=== PATIENT | male | born 1980 | race Caucasian/White ===

== ENCOUNTER 2016-08-16 19:15 | Emergency (ER) | payer SELFPAY ==
[~2016-08-16] VITALS: Ht 177.8 cm; Wt 159.8 kg
[2016-08-16 19:44] VITALS: BP 132/85; PULSE 102; RESP 20; TEMP 99.1; O2SAT 94
[2016-08-16] MEDS ORDERED: MORPHINE SULFATE 8 MG/ML INJ IV PUSH ONE (20:00)
[2016-08-16] MEDS ORDERED: SODIUM CHLORIDE 0.9% FLUSH 5 ML FLUSH IVF PRN (20:00)
[2016-08-16] MEDS ORDERED: CLON0.1T PO ×2 (20:04→21:54)
[2016-08-16] MEDS ORDERED: GABA800T PO (20:04)
[2016-08-16 20:05] VITALS: RESP 18; O2SAT 94
--- NOTE | 2016-08-16 20:26 | PD ---
HPI Chief Complaint: Abdominal Pain Time Seen by Provider: 19:51 Travel History International Travel<30 days: No Contact w/Intl Traveler<30days: No Traveled to known affect area: No History of Present Illness HPI 36-year-old male arrives to the ER with complaint of abdominal pain times several weeks at least. Location is right upper quadrant with radiation to the back. It is constant. It's worse with changes in position like bending over. He denies drinking alcohol. He's had no nausea vomiting or diarrhea. He said no fever. His appetite has been normal lately. He also complains of pain and numbness in the feet. He suffers with neuropathy. He was prescribed Neurontin by me a couple weeks ago here, 30 days 900 mg 3 times a day, which she states was beneficial however was taking up to 1500 mg at a time. Standing on his feet for more than a few hours at a time tends to cause worsening numbness and pain. He states that the pain is a 7/10. The neuropathy has been present for years. He has no history of diabetes of which he is aware. PFSH Past Medical History Hx Anticoagulant Therapy: Yes Cardiovascular Problems: Yes Diminished Hearing: No Hypertension: Yes Neurologic: Yes Immunizations Current: Yes Tetanus Vaccination: Unknown Influenza Vaccination: No Social History Alcohol Use: Yes Tobacco Use: No Substance Use: No Allergies-Medications (Allergen,Severity, Reaction): Coded Allergies: No Known Allergies (Unverified , 08/16/16) Reported Meds & Prescriptions Reported Meds & Active Scripts Active Clonidine (Clonidine HCl) 0.1 Mg Tab 0.1 Mg PO BID Gabapentin 300 Mg Cap 900 Mg PO TID 30 Days Reported Gabapentin 800 Mg Tab 800 Mg PO TID Review of Systems Except as stated in HPI: all other systems reviewed are Neg Physical Exam Narrative GENERAL: 36 yo M, BMI is 50, pleasant SKIN: Warm and dry. HEAD: Atraumatic. Normocephalic. EYES: Pupils equal and round. No scleral icterus. No injection or drainage. ENT: No nasal bleeding or discharge. Mucous membranes pink and moist. NECK: Trachea midline. No JVD. CARDIOVASCULAR: Regular rate and rhythm. RESPIRATORY: No accessory muscle use. Clear to auscultation. Breath sounds equal bilaterally. GASTROINTESTINAL: Minimal TTP RUQ. Soft. Obese abdomen. MUSCULOSKELETAL: Extremities without clubbing, cyanosis, or edema. No obvious deformities. 2+ DP bilaterally. Hair intact about toes. Brisk cap refill present. No asymmetry of either calf to suggest DVT. Sensation on soles of feet diminished however deep pressure sensation is preserved. NEUROLOGICAL: Awake and alert. No obvious cranial nerve deficits. Motor grossly within normal limits. Five out of 5 muscle strength in the arms and legs. Normal speech. PSYCHIATRIC: Appropriate mood and affect; insight and judgment normal. Data Data Last Documented VS Vital Signs Date Time Temp Pulse Resp B/P Pulse Ox O2 Delivery O2 Flow Rate FiO2 08/16/16 22:18 99 18 104/66 94 08/16/16 21:04 Room Air 08/16/16 19:44 99.1 Orders Complete Blood Count With Diff (08/16/16 20:00) Comprehensive Metabolic Panel (08/16/16 20:00) Lipase (08/16/16 20:00) Iv Access Insert/Monitor (08/16/16 20:00) Ecg Monitoring (08/16/16 20:00) Oximetry (08/16/16 20:00) Sodium Chloride 0.9% Flush (Ns Flush) (08/16/16 20:00) Ct Abd/Pel W Iv Contrast(Rout) (08/16/16 20:00) Morphine Inj (Morphine Inj) (08/16/16 20:00) Iohexol 350 Inj (Omnipaque 350 Inj) (08/16/16 20:54) Potassium Chloride (Kcl) (08/16/16 22:00) Labs Laboratory Tests Test 08/16/16 20:25 White Blood Count 8.2 TH/MM3 Red Blood Count 4.72 MIL/MM3 Hemoglobin 13.8 GM/DL Hematocrit 41.2 % Mean Corpuscular Volume 87.2 FL Mean Corpuscular Hemoglobin 29.2 PG Mean Corpuscular Hemoglobin 33.5 % Concent Red Cell Distribution Width 14.4 % Platelet Count 243 TH/MM3 Mean Platelet Volume 8.2 FL Neutrophils (%) (Auto) 59.5 % Lymphocytes (%) (Auto) 32.4 % Monocytes (%) (Auto) 6.1 % Eosinophils (%) (Auto) 1.5 % Basophils (%) (Auto) 0.5 % Neutrophils # (Auto) 5.0 TH/MM3 Lymphocytes # (Auto) 2.6 TH/MM3 Monocytes # (Auto) 0.5 TH/MM3 Eosinophils # (Auto) 0.1 TH/MM3 Basophils # (Auto) 0.0 TH/MM3 CBC Comment DIFF FINAL Differential Comment Sodium Level 141 MEQ/L Potassium Level 3.3 MEQ/L Chloride Level 103 MEQ/L Carbon Dioxide Level 29.1 MEQ/L Anion Gap 9 MEQ/L Blood Urea Nitrogen 11 MG/DL Creatinine 0.84 MG/DL Estimat Glomerular Filtration 102 ML/MIN Rate Random Glucose 99 MG/DL Calcium Level 8.8 MG/DL Total Bilirubin 0.2 MG/DL Aspartate Amino Transf 16 U/L (AST/SGOT) Alanine Aminotransferase 28 U/L (ALT/SGPT) Alkaline Phosphatase 75 U/L Total Protein 7.3 GM/DL Albumin 3.7 GM/DL Lipase 94 U/L [facility] Medical Decision Making Medical Screen Exam Complete: Yes Emergency Medical Condition: Yes Differential Diagnosis Constipation, Gastritis, Acute Cholecystitis, Biliary Colic, Pancreatitis, CHAPIN , Hepatitis, Bowel Obstruction, Cystitis, Mesenteric Ischemia, AAA, Appendicitis , Renal Stone/Hydronephrosis, GERD, perforated viscous, neuropathy Narrative Course CBC & BMP Diagram 08/16/16 20:25 LFTs normal Lipase normal Last 24 hours Impressions Abdomen/Pelvis CT 08/16/161999 Signed Impressions: Service Date/Time: Tuesday, August 16, 2016 20:35 - CONCLUSION: 1. I do not see an etiology for the patient's right lower quadrant pain. 2. There are mild degenerative changes present in the thoracic spine and both SI joints. Efren Sheets MD FACR The patient is resting comfortably and feels better, is alert and in no distress. The patients results and examination findings were discussed. The repeat examination is unremarkable and benign. The history, exam, diagnostic testing, and current condition do not suggest any significant pathology to warrant further testing, continued ED treatment, admission, or surgical evaluation at this point. The vital signs have been stable. The patient does not have uncontrollable pain, intractable vomiting, or other significant symptoms. The patient's condition is stable and appropriate for discharge. The patient will pursue further outpatient evaluation with a primary care physician or other designated or consulting physician as indicated in the discharge instructions. The patient expressed understanding and was agreeable with this plan. Diagnosis Primary Impression: Abdominal pain Qualified Code: R10.11 - Right upper quadrant abdominal pain Additional Impression: Neuropathy Referrals: Dorothea Rousseau MD 2 days Additional Instructions: You have a choice when it comes to health care, and we are glad that you chose [facility]. Hopefully, we have met your expectations on today's visit. You are welcome to return to [facility] at any time, as we are committed to meeting the health care needs of our community. Med/Other Pt SpecificInfo: Prescription(s) given Scripts Clonidine 0.1 Mg Tab0.1 Mg PO BID #60 TAB Ref 0 Prov:Kenny Teran MD 08/16/16 Gabapentin 300 Mg [id number] Mg PO TID 30 Days Ref 0 Prov:Kenny Teran MD 08/16/16 Disposition: 01 DISCHARGE HOME Condition: Stable Kenny Teran MD Aug 16, 2016 20:26
[2016-08-16 20:39] LABS: BASOPHIL % 0.5 % (0.0-2.0); EOSINOPHIL # 0.1 TH/MM3 (0-0.4); EOSINOPHIL % 1.5 % (0.0-4.0); HEMATOCRIT 41.2 % (39.0-51.0); HEMO FLAGS DIFF FINAL; LYMPH % 32.4 % (9.0-44.0); LYMPHOCYTE # 2.6 TH/MM3 (1.0-4.8); MEAN CELL VOLUME 87.2 FL (80.0-100.0); MEAN CORPUSCULAR HEMOGLOBIN 29.2 PG (27.0-34.0); MEAN CORPUSCULAR HGB CONC 33.5 % (32.0-36.0); MONO % 6.1 % (0.0-8.0); NEUT % 59.5 % (16.0-70.0); PLATELET COUNT 243 TH/MM3 (150-450); RED BLOOD COUNT 4.72 MIL/MM3 (4.50-5.90); RED CELL DISTRIBUTION WIDTH 14.4 % (11.6-17.2); WHITE BLOOD COUNT 8.2 TH/MM3 (4.0-11.0)
[2016-08-16 20:48] LABS: CHLORIDE 103 MEQ/L (98-107); POTASSIUM 3.3 MEQ/L (3.5-5.1); SODIUM (NA) 141 MEQ/L (136-145)
[2016-08-16 20:52] LABS: ANION GAP 9 MEQ/L (5-15); BICARBONATE 29.1 MEQ/L (21.0-32.0); BLOOD UREA NITROGEN 11 MG/DL (7-18)
[2016-08-16] MEDS ORDERED: IOHEXOL 350 MG/ML 10 ML VIAL (for RAD DIAG) IV ONE (20:54)
[2016-08-16 20:55] LABS: ALT (GPT) 28 U/L (12-78); AST (GOT) 16 U/L (15-37); GLOMERULAR FILTRATION RATE 102 ML/MIN (>89)
[2016-08-16 20:56] LABS: TOTAL BILIRUBIN ADULT 0.2 MG/DL (0.2-1.0)
[2016-08-16 20:57] LABS: ALKALINE PHOSPHATASE 75 U/L (45-117)
[2016-08-16 21:04] VITALS: BP 115/54; PULSE 94; RESP 18; O2SAT 94
--- NOTE | 2016-08-16 21:37 | RADHPO ---
EXAM DATE/TIME: 08/16/2016 20:35 [facility] COMPARISON: No previous studies available for comparison. INDICATIONS : Right abdominal pain. Lower extremity neuropathy. IV CONTRAST: 75 cc Omnipaque 350 (iohexol) IV ORAL CONTRAST: No oral contrast ingested. RADIATION DOSE: 22.37 CTDIvol (mGy) MEDICAL HISTORY : Hypertension. SURGICAL HISTORY : None. ENCOUNTER: Initial ACUITY: 1 day PAIN SCALE: 7/10 LOCATION: Right abdomen and pelvis. TECHNIQUE: Volumetric scanning of the abdomen and pelvis was performed. Using automated exposure control and adjustment of the mA and/or kV according to patient size, radiation dose was kept as low as reasonably achievable to obtain optimal diagnostic quality images. FINDINGS: The lung bases are clear. The liver is free of focal defects. Gallbladder is unremark able. Spleen, pancreas, adrenals and kidneys appear unremarkable. There is no adenopathy. There is no ascites. Region of the cecum and terminal ileum appear unremarkable. Pelvic contents are unremarkable. CONCLUSION: 1. I do not see an etiology for the patient's right lower quadrant pain. 2. There are mild degenerative changes present in the thoracic spine and both SI joints. Efren Sheets MD FACR on August 16, 2016 at 21:02 Board Certified Radiologist. This report was verified electronically.
[2016-08-16] MEDS ORDERED: GABA300C5 PO (21:50)
[2016-08-16] MEDS ORDERED: POTASSIUM CHLORIDE 20 MEQ CONTROLLED RELEASE TAB PO ONE (22:00)
[2016-08-16 22:18] VITALS: BP 104/66
== END 2016-08-16 22:22 | disposition home or self-care (01) ==
LOC: PHED 19:15
DX: R10.11 Right upper quadrant pain (principal); I10 Essential (primary) hypertension; G62.9 Polyneuropathy, unspecified; Z79.01 Long term (current) use of anticoagulants
CPT/HCPCS: 74177; 80053; 83690; 85025; 96374; 99284; J2270; Q9967